=== PATIENT | female | born 1935 | race Caucasian/White ===

== ENCOUNTER 2023-10-07 10:50 | Emergency (ER) | payer MEDICARE ==
[~2023-10-07] VITALS: Ht 162.6 cm; Wt 70.0 kg
[2023-10-07 10:51] VITALS: O2SAT 97
[2023-10-07 11:15] VITALS: BP 131/111; PULSE 70; RESP 16; TEMP 98.1
[2023-10-07 12:40] LABS: BASOPHILS % 0.8 % (0.0-2.0); EOSINOPHILS % 2.4 % (0.0-5.0); HEMATOCRIT. 41.8 % (36.0-48.0); LYMPHOCYTES % 12.4 % (20.0-50.0); MEAN CORPUSCULAR HEMOGLOBIN 32.1 pg (28.0-32.0); MEAN CORPUSCULAR HGB CONC 33.5 g/dL (31.0-37.0); MEAN CORPUSCULAR VOLUME 95.7 fL (81.0-99.0); MEAN PLATELET VOLUME 9.8 fl (7.4-10.4); MONOCYTES % 9.9 % (2.0-8.0); NEUTROPHILS % 74.5 % (40.0-76.0); PLATELET 249 x1000/uL (130-400); RED BLOOD CELL COUNT 4.37 mill/uL (4.2-5.4); RED CELL DISTRIBUTION WIDTH 15.3 % (11.6-14.6); WHITE BLOOD COUNT 10.1 x1000/uL (4.5-11.0)
[2023-10-07 12:46] LABS: CHLORIDE 105 mEq/L (98-107); POTASSIUM 4.6 mEq/L (3.5-5.1); SODIUM 137 mEq/L (136-145)
[2023-10-07 12:47] LABS: CARBON DIOXIDE 24 mEq/L (21-32)
[2023-10-07 12:52] LABS: CREATININE 0.8 mg/dL (0.6-1.0); GLUCOSE 88 mg/dL (70-105); UREA NITROGEN BLOOD 24 mg/dL (9-23)
[2023-10-07 12:53] LABS: TROPONIN I HIGH SENSITIVITY 5 ng/L (3.0-34)
== END 2023-10-07 13:06 | disposition home or self-care (01) ==
LOC: ER 12:36
DX: R00.2 Palpitations (principal); I48.91 Unspecified atrial fibrillation; E11.9 Type 2 diabetes mellitus without complications; I10 Essential (primary) hypertension
CPT/HCPCS: 36415; 71045; 80048; 83880; 84484; 85025; 93005; 99285